=== PATIENT | female | born 1990 | race Caucasian/White ===

== ENCOUNTER 2017-06-10 23:43 | Inpatient (IN) | payer MEDICAID ==
[~2017-06-10 23:43] MED LIST: IBUP600 PO; PREN0.01 PO
[2017-06-11] VITALS (12 sets, daily range): BP systolic 101–128; BP diastolic 53–113; PULSE 68–111; RESP 18; TEMP 97.5–98.4; O2SAT 97–98
[2017-06-11] MEDS ORDERED: OXYTOCIN 30 UNITS-500ML PREMIX 0 ML ONE (00:02)
[2017-06-11] MEDS ORDERED: OXYTOCIN 10 UNIT/ML AMP ONE (00:04)
[2017-06-11] MEDS ORDERED: LIDOCAINE HCL 1% 20 ML VIAL ONE (00:05)
[2017-06-11] MEDS ORDERED: METHYLERGONOVINE MALEATE 0.2 MG/ML VIAL ONE (00:06)
--- NOTE | 2017-06-11 00:25 | PD.OB.DELI ---
Weeks gestation: 38 Gest age assessed date: Jun 11, 2017 Gest age assessed time: 23:30 Pt started active labor?: Yes Active labor start date: Jun 10, 2017 Active labor start time: 22:00 Medical induction of labor?: No Artificial rupture of membrane: No Anesthesia: Lidocaine local to perineum Episiotomy: None Vaginal Delivery: Normal Presentation: Occiput anterior Nuchal Cord: None Delayed cord clamping (45 sec): Yes Infant: Male Delivery date: Jun 11, 2017 Delivery time: 00:03 One Minute : 9 Five Minute : 9 Weight: 3275 gm Placenta: Spontaneous delivery Laceration: Perineal laceration, 1 deg Repair: Chromic interrupted Estimated blood loss: 100cc Additional Information precipitous labor and delivery Chapincito Salas II, MD Jun 11, 2017 00:25
--- NOTE | 2017-06-11 00:29 | HHI.HP ---
HPI Chief Complaint Contractions Date Seen: Jun 11, 2017 Time Seen: 23:55 Travel History International Travel<30 Days: No Contact w/Intl Traveler<30Days: No Known Affected Area: No History of Present Illness HPI 27-year-old white female at 38 weeks with precipitous labor presents completely dilated and pushing. heart tones reactive contractions noted Weeks Gestation: 38 Para: 2 : 3 History Obstetric History Obstetric History 2 vaginal deliveries Social History Alcohol Use: No Tobacco Use: No Substance Abuse: No Allergies-Medications (Allergen,Severity, Reaction): Coded Allergies: No Known Allergies (Verified , 02/01/08) Home Meds Active Scripts Ibuprofen (Motrin 600 Mg Tab) 600 Mg Tab, 600 MG PO Q6H Y for CRAMPING, #30 TAB 1 Refill Prov:Tereza Rothman MD 10/25/15 Reported Medications Multivit/Min/Fol Ac/Iron/Pren ( Vit ( Plus)) Tab, 1 TAB PO DAILY while 07/02/11 Review of Systems General / Constitutional: No: Fever, Weight Gain, Chills, Other Eyes: No: Diploplia, Blurred Vision, Visual changes, Pain, Photophobia HENT: No: Headaches, Vertigo, Lightheadedness Cardiovascular: No: Irregular Rhythm, Chest Pain or Discomfort, Palpitations, Tachycardia, Syncope, Varicosities, Edema, Cyanosis Respiratory: No: Cough, Short of Breath, Other Gastrointestinal: Abdominal Pain, No: Nausea, Vomiting, Diarrhea Genitourinary: No: Decreased Urinary Output, Oliguria Musculoskeletal: No: Limited ROM, Weakness, Cramping, Edema, Pain Skin: No Rash, No Itching, No Dryness, No Lumps, No Change in Pigmentation, No Change in Nails, No Alopecia, No Lesions Neurologic: No: Weakness, Dizziness, Syncope, Focal Abnormalities, Coordination Problem, Headache, Slurred Speech, Seizures Psychiatric: No: Depression, Suicidal Ideations, Homicidal Ideation Endocrine: No: Heat Intolerance, Cold Intolerance, Polydipsia, Polyuria, Other Physical Exam Narrative GENERAL: Well-nourished, well-developed patient. SKIN: Warm and dry. HEAD: Normocephalic and atraumatic. EYES: No scleral icterus. No injection or drainage. ENT: No nasal drainage noted. Mucous membranes pink. Airway patent. NECK: Supple, trachea midline. No JVD. CARDIOVASCULAR: Regular rate and rhythm without murmurs, gallops, or rubs. RESPIRATORY: Breath sounds equal bilaterally. No accessory muscle use. BREASTS: Bilateral exam showed no masses , no retractions, no nipple discharge. ABDOMEN/GI: Abdomen soft, non-tender, bowel sounds present, no rebound, no guarding Gravid to [-38] weeks size Fundal Height: [38-] GENITOURINARY: External Genitalia: intact and normal in appearance BUS glands: [-] Cervix: [-] Dilatation: [-10] Effacement: [-100] Station: [+2-] Presentation: [vtx-] Membranes: [intact ] Uterine Contractions: [reg-] FHT's: Category: [1-] Baseline: [133-] Reactive: [-R] Variability: [-mod] Decels: [-none] EXTREMITIES: No cyanosis or edema. BACK: Nontender without obvious deformity. No CVA tenderness. NEUROLOGICAL: Awake and alert. Motor and sensory grossly within normal limits. Five out of 5 muscle strength in all muscle groups. Normal speech. Caprini VTE Risk Assessment Caprini VTE Risk Assessment: No/Low Risk (score <= 1) Caprini Risk Assessment Model Point Value = 1 Point Value = 2 Point Value = 3 Point Value = 5 Age 41-60 Minor surgery BMI > 25 kg/m2 Swollen legs Varicose veins or History of unexplained or recurrent spontaneous Oral contraceptives or hormone replacement Sepsis (< 1 month) Serious lung disease, including pneumonia (< 1 month) Abnormal pulmonary function Acute myocardial infarction Congestive heart failure (< 1 month) History of inflammatory bowel disease Medical patient at bed rest Age 61-74 Arthroscopic surgery Major open surgery (> 45 min) Laparoscopic surgery (> 45 min) Malignancy Confined to bed (> 72 hours) Immobilizing plaster cast Central venous access Age >= 75 History of VTE Family history of VTE Factor V Leiden Prothrombin [id number] Lupus anticoagulant Anticardiolipin antibodies Elevated serum homocysteine Heparin-induced thrombocytopenia Other congenital or acquired thrombophilia Stroke (< 1 month) Elective arthroplasty Hip, pelvis, or leg fracture Acute spinal cord injury (< 1 month) Prophylaxis Regimen Total Risk Factor Score Risk Level Prophylaxis Regimen 0-1 Low Early ambulation 2 Moderate Order ONE of the following: *Sequential Compression Device (SCD) *Heparin 5000 units SQ BID 3-4 Higher Order ONE of the following medications: *Heparin 5000 units SQ TID *Enoxaparin/Lovenox 40 mg SQ daily (WT < 150 kg, CrCl > 30 mL/min) *Enoxaparin/Lovenox 30 mg SQ daily (WT < 150 kg, CrCl > 10-29 mL/min) *Enoxaparin/Lovenox 30 mg SQ BID (WT < 150 kg, CrCl > 30 mL/min) AND/OR *Sequential Compression Device (SCD) 5 or more Highest Order ONE of the following medications: *Heparin 5000 units SQ TID (Preferred with Epidurals) *Enoxaparin/Lovenox 40 mg SQ daily (WT < 150 kg, CrCl > 30 mL/min) *Enoxaparin/Lovenox 30 mg SQ daily (WT < 150 kg, CrCl > 10-29 mL/min) *Enoxaparin/Lovenox 30 mg SQ BID (WT < 150 kg, CrCl > 30 mL/min) AND *Sequential Compression Device (SCD) Data Data Orders Orders Ob (2e) Additional Admit Info (06/10/17 23:55) Oxytocin 30 Units-500ml Premix (Pitocin (06/11/17 00:02) Oxytocin Inj (Pitocin Inj) (06/11/17 00:04) Lidocaine 1% Inj (Xylocaine 1% Inj) (06/11/17 00:05) Methylergonovine Inj (Methergine Inj) (06/11/17 00:06) Admit To Inpatient (06/11/17 ) Complete Blood Count With Diff (06/11/17 00:20) Vital Signs (Adult) .QSHIFT (06/11/17 00:20) Activity Oob Ad Sri (06/11/17 00:20) Ice / Cold Pack PRN (06/11/17 00:20) Discontinue Iv (06/11/17 00:20) Sitz Bath PRN (06/11/17 00:20) ^ Massage (06/11/17 00:20) ^ Rhogam (06/11/17 00:20) Urinary Catheter Management .PRN (06/11/17 00:20) Diet Regular Basic (06/11/17 Breakfast) Sodium Chloride 0.9% Flush (Ns Flush) (06/11/17 09:00) Sodium Chloride 0.9% Flush (Ns Flush) (06/11/17 00:30) Oxytocin 30 Units-500ml Premix (Pitocin (06/11/17 00:30) Acetaminophen (Tylenol) (06/11/17 00:30) Ibuprofen (Motrin) (06/11/17 00:30) Oxycodone-Acetamin 5-325 Mg (Percocet (06/11/17 00:30) Benzocaine 20% Top Spr (Americaine 20% T (06/11/17 00:30) Witch Kristin-Glycerin Pad (Tucks Pads) (06/11/17 00:30) Docusate Sodium-Senna (Mary Jane-Colace) (06/11/17 00:30) Zolpidem (Ambien) (06/11/17 00:30) Riqghrz-Dxfrv-Bkeapmt Inj (M-M-R Ii Inj) (06/11/17 16:00) Maib-Ycr-Emwjqp (Booster) Inj (Boostrix (06/11/17 16:00) Al-Mag Hy-Si 40-40-4 Mg/Ml Liq (Mag-Al P (06/11/17 00:30) Ondansetron Odt (Zofran Odt) (06/11/17 00:30) Assessment/Plan Assessment and Plan Patient is 27-year-old white female 38 weeks presented OB ED and precipitous labor, dilated 8-9 cm and rapidly went to complete and began to push and delivered without complication Impression--precipitous labor and delivery Plan is care Chapincito Salas II, MD Jun 11, 2017 00:29
[2017-06-11] MEDS ORDERED: ALUMINUM/MAGNESIUM/SIMETH 30 ML CUP PO PRN (00:30)
[2017-06-11] MEDS ORDERED: ACETAMINOPHEN 325 MG TAB PO PRN (00:30)
[2017-06-11] MEDS ORDERED: SODIUM CHLORIDE 0.9% FLUSH 10 ML FLUSH IV FLUSH PRN (00:30)
[2017-06-11] MEDS ORDERED: OXYTOCIN 30 UNITS-500ML PREMIX 500 ML IV SCH (00:30)
[2017-06-11] MEDS ORDERED: BENZOCAINE 20% TOPICAL SPRAY 60 ML CAN TOPICAL PRN (00:30)
[2017-06-11] MEDS ORDERED: oxyCODONE/ACETAMINOPHEN 5 MG/325 MG TAB PO PRN (00:30)
[2017-06-11] MEDS ORDERED: ZOLPIDEM TARTRATE 5 MG TAB PO PRN (00:30)
[2017-06-11] MEDS ORDERED: IBUPROFEN 800 MG TAB PO PRN (00:30)
[2017-06-11] MEDS ORDERED: WITCH HAZEL 50%/GLYCERIN 12.5% 40 PAD JAR TOPICAL PRN (00:30)
[2017-06-11] MEDS ORDERED: ONDANSETRON ODT 4 MG TAB PO PRN (00:30)
--- NOTE | 2017-06-11 00:33 | HHI.PR ---
[employer] Note Note 27 yo white female who had recieved PNC by Dr. Villa at [facility] who presented in labor at 38w1d and had a precipitous delivery by Dr. Salas, i arrived to the room 18 minutes after being notified. Delivery of viable female was uncomplicated per report, pt feels well. Will transition to , pt states that both her children have the flu and she is starting to feel ill, will provided tamiflu for empiric treatment. Continue routine care. PMH: Relevant medical and OB hx Asthma, HSV, GBS neg, PPH w/ delivery #2. Glen Billingsley MD Jun 11, 2017 00:33
--- NOTE | 2017-06-11 00:35 | HHI.DCPOC ---
Discharge Care Plan Diagnosis: (1) (spontaneous vaginal delivery) Your Health Problems Are: Vaginal delivery Report Symptoms to Your Doctor -Temperature above 100.5 degrees -Redness, of incision or excessive or foul smelling drainage -Unusual pain or calf pain -Increased vaginal bleeding -Painful or difficulty urinating -Feelings of extreme sadness or anxiety after 2 weeks Goals to Promote Your Health * To prevent worsening of your condition and complications * To maintain your health at the optimal level Directions to Meet Your Goals Take your medications as prescribed Follow your dietary instruction Follow activity as directed Ensure plenty of rest for recovery Drink fluids for hydration Keep your appointments as scheduled Take your immunizations and boosters as scheduled If your symptoms worsen call your PCP, if no PCP go to Urgent Care Center or Emergency Room Smoking is Dangerous to Your Health. Avoid second hand smoke Call the 24-hour crisis hotline for domestic abuse at Glen Billingsley MD Jun 11, 2017 00:35
[2017-06-11 00:58] LABS: BASOPHIL % 0.3 % (0.0-2.0); EOSINOPHIL % 0.1 % (0.0-4.0); HEMATOCRIT 37.5 % (35.0-46.0); HEMOGLOBIN 12.9 GM/DL (11.6-15.3); LYMPH % 9.9 % (9.0-44.0); LYMPHOCYTE # 0.9 TH/MM3 (1.0-4.8); MEAN CELL VOLUME 88.4 FL (80.0-100.0); MEAN CORPUSCULAR HEMOGLOBIN 30.3 PG (27.0-34.0); MEAN CORPUSCULAR HGB CONC 34.3 % (32.0-36.0); MEAN PLATELET VOLUME 10.8 FL (7.0-11.0); MONO % 9.4 % (0.0-8.0); MONOCYTE # 0.8 TH/MM3 (0-0.9); NEUT % 80.3 % (16.0-70.0); PLATELET COUNT 138 TH/MM3 (150-450); RED BLOOD COUNT 4.25 MIL/MM3 (4.00-5.30); RED CELL DISTRIBUTION WIDTH 14.2 % (11.6-17.2); WHITE BLOOD COUNT 8.7 TH/MM3 (4.0-11.0)
[2017-06-11] MEDS: OSELTAMIVIR PHOSPHATE 75 MG CAP PO SCH ×3 (01:00→23:37)
[2017-06-11] MEDS ORDERED: METHYLERGONOVINE MALEATE 0.2 MG/ML VIAL IM ONE (01:30)
[2017-06-11] MEDS ORDERED: OXYTOCIN 30 UNITS-500ML PREMIX 500 ML IV ONE (02:05)
[2017-06-11] MEDS ORDERED: LIDOCAINE HCL 1% 20 ML VIAL SQ ONE (02:05)
[2017-06-11] MEDS ORDERED: OXYTOCIN 10 UNIT/ML AMP IM ONE (02:05)
[2017-06-11] MEDS ORDERED: SODIUM CHLORIDE 0.9% FLUSH 10 ML FLUSH IV FLUSH SCH (09:00)
[2017-06-11] MEDS: DOCUSATE SODIUM 50 MG/SENNA 8.6 MG TAB PO PRN ×2 (13:45→23:36)
[2017-06-11] MEDS ORDERED: DIPHTH/TETANUS/ACEL PERTUSSIS (BOOSTER) 0.5 ML VIAL/PFS IM ONE (16:00)
[2017-06-11] MEDS ORDERED: MEASLES, MUMPS, RUBELLA VACCINE 0.5 ML VIAL SQ ONE (16:00)
[2017-06-12 08:00] VITALS: BP 108/63; PULSE 79; RESP 20; TEMP 98; O2SAT 99
--- NOTE | 2017-06-12 08:16 | HHI.OB ---
Subjective Post Day: 1 Remarks doing well, PPD #1, ready for discharge this afternoon, tamiflu for flu exposure Objective Vitals/I&O Vital Signs Date Time Temp Pulse Resp B/P (MAP) Pulse Ox O2 Delivery O2 Flow Rate FiO2 06/11/17 20:00 97.5 06/11/17 20:00 78 18 117/53 (74) 97 Objective Remarks GENERAL: Well-nourished, well-developed patient. CARDIOVASCULAR: Regular rate and rhythm without murmurs, gallops, or rubs. RESPIRATORY: Breath sounds equal bilaterally. No accessory muscle use. ABDOMEN/GI: Abdomen soft, non-tender. Fundus: Firm, non-tender at umbilicus. GENITOURINARY: Light to moderate bleeding. EXTREMITIES: No cyanosis or edema, non-tender, without signs of DVT. Medications and IVs Current Medications Medications (Trade) Dose Ordered Sig/Mitesh Route Start Time Stop Time Status Last Admin (NS Flush) 2 ml BID IV FLUSH 06/11/17 09:00 (NS Flush) 2 ml UNSCH PRN IV FLUSH 06/11/17 00:30 (Tylenol) 650 mg Q4H PRN PO 06/11/17 00:30 06/11/17 13:45 (Motrin) 800 mg Q8H PRN PO 06/11/17 00:30 06/11/17 13:45 (Percocet 5-325 Mg) 1 tab Q4H PRN PO 06/11/17 00:30 (Americaine 20% Top Spr) 1 spray Q4H PRN TOPICAL 06/11/17 00:30 06/11/17 09:56 (Tucks Pads) 1 applic QID PRN TOPICAL 06/11/17 00:30 06/11/17 09:56 (Mary Jane-Colace) 2 tab Q12H PRN PO 06/11/17 00:30 06/11/17 23:36 (Ambien) 5 mg HS PRN PO 06/11/17 00:30 (Mag-Al Plus Susp Liq) 15 ml Q8H PRN PO 06/11/17 00:30 (Zofran Odt) 4 mg Q6H PRN PO 06/11/17 00:30 (Tamiflu) 75 mg BID PO 06/11/17 01:00 06/11/17 23:37 Assessment/Plan Assessment and Plan Patient is 27-year-old white female 38 weeks s/p precipitous PPD #1 discharge this afternoon Discharge Planning routine Attending Attestation pt seen by Nelda Kamara MD Jun 12, 2017 08:16
[2017-06-12] MEDS ORDERED: OSEL75 PO (08:18)
[2017-06-12] MEDS: OSELTAMIVIR PHOSPHATE 75 MG CAP PO SCH (09:03)
== END 2017-06-12 15:22 | disposition home or self-care (01) | DRG 774 ==
LOC: HOBED 23:43 → H2EB 23:56 → H1EA 06-11 02:46
PROVIDERS: ADMIT Obstetrics & Gynecology; ATTEND Obstetrics & Gynecology
PROC: 10E0XZZ Delivery of Products of Conception, External Approach (ICD-10-PCS; principal; 2017-06-11)
PROC: 0HQ9XZZ Repair Perineum Skin, External Approach (ICD-10-PCS; 2017-06-11)
DX: O62.3 Precipitate labor (principal); O98.52 Other viral diseases complicating childbirth; J45.909 Unspecified asthma, uncomplicated; O99.52 Diseases of the respiratory system complicating childbirth; O70.0 First degree perineal laceration during delivery; Z20.828 Contact with and (suspected) exposure to other viral communicable diseases; Z3A.38 38 weeks gestation of pregnancy; Z37.0 Single live birth
CPT/HCPCS: 80307; 85025; 86900; 86901; 87804; 90707; 90715; 99285; G0481; J2210; J2590